=== PATIENT | female | born 1980 | race Caucasian/White ===

== ENCOUNTER 2024-02-22 15:06 | Emergency (ER) | payer OTHER ==
[2024-02-22] MEDS ORDERED: Bicillin LA 1.2 MILLION UNITS/2 ML SYRINGE IM SCH (19:00)
== END 2024-02-22 19:24 | disposition home or self-care (01) ==
LOC: CSHERS 15:06
DX: J02.9 Acute pharyngitis, unspecified (principal)
CPT/HCPCS: 96372; 99282; J0561